=== PATIENT | female | born 1980 | race Caucasian/White ===

== ENCOUNTER 2016-10-10 03:09 | Emergency (ER) | payer MEDICAID ==
[~2016-10-10] VITALS: Ht 154.9 cm; Wt 77.1 kg
[~2016-10-10 03:09] MED LIST: PRENATAL1 TA4
[2016-10-10 03:50] VITALS: BP 135/92
--- NOTE | 2016-10-10 04:23 | NUR ---
PT TAKEN TO BED 1
--- NOTE | 2016-10-10 04:32 | NUR ---
Dr. Kelly evaluating patient at bedside.
--- NOTE | 2016-10-10 04:40 | NUR ---
35Y/F PATIENT PRESENTS TO ED WITH C/O OF VAGINAL BLEEDING STARTED 2330. DENIES ANY PAIN, N/V/D. PATIENT IS NO PAST MED HX.; SKIN IS PINK/WARM/DRY; AAOX4 WITH EVEN AND STEADY GAIT; LUNGS CLEAR BL; HR EVEN AND REGULAR; PT DENIES ANY FEVER, CP, SOB, OR COUGH AT THIS TIME; PATIENT STATES PAIN OF 0/10 AT THIS TIME; VSS; PATIENT POSITIONED FOR COMFORT; HOB ELEVATED; BEDRAILS UP X2; BED DOWN. ER MD MADE AWARE OF PT STATUS.
--- NOTE | 2016-10-10 06:19 | NUR ---
Female Instructor [employer] Marva Russell (EMT) accompanied ER MD for FEMALE PATIENT Pelvic Exam.
--- NOTE | 2016-10-10 07:05 | NUR ---
Patient discharged with v/s stable. Written and verbal after care instructions given and explained. Patient verbalized understanding. Ambulatory with steady gait. All questions addressed prior to discharge. Advised to follow up with PMD.
[2016-10-10 07:07] VITALS: BP 125/85
[2016-12-25] MEDS ORDERED: PRENATAL LOW IR1 TA1 PO (22:30)
== END 2016-10-10 07:05 | disposition home or self-care (01) ==
LOC: MED 03:09
DX: O20.0 Threatened abortion (principal); Z3A.12 12 weeks gestation of pregnancy

== ENCOUNTER 2016-12-25 20:12 | Observation (INO) | payer MEDICAID ==
[~2016-12-25] VITALS: Ht 160 cm; Wt 78.5 kg
[2016-12-25 21:18] VITALS: BP 123/78
[2016-12-25] MEDS ORDERED: PREN-380 PO (22:30)
== END 2016-12-25 23:58 | disposition home or self-care (01) ==
LOC: MLD 20:12
PROVIDERS: ADMIT Obstetrics & Gynecology; ATTEND Obstetrics & Gynecology
DX: O26.892 Other specified pregnancy related conditions, second trimester (principal); R10.9 Unspecified abdominal pain; Z3A.23 23 weeks gestation of pregnancy
CPT/HCPCS: 76805; G0378; Q0092

== ENCOUNTER 2018-06-18 00:09 | Emergency (ER) | payer MEDICAID ==
[~2018-06-18] VITALS: Ht 160 cm; Wt 68.0 kg
[~2018-06-18 00:09] MED LIST changes: +PREN-380 PO; -PRENATAL1 TA4
[2018-06-18 00:14] VITALS: BP 130/98
[2018-06-18] MEDS ORDERED: MORPHINE SULFATE 4 MG/ML SYR IVP ONE (00:30)
[2018-06-18] MEDS ORDERED: NACL 0.9% 1,000 ML IV ONE (00:30)
[2018-06-18] MEDS ORDERED: PROCHLORPERAZINE 10 MG/2 ML VIAL IVP ONE (00:35)
[2018-06-18 00:45] LABS: BASOPHILS # (AUTO) 0.1 K/uL (0.00-0.22); BASOPHILS % (AUTO) 0.8 % (0.0-2.0); EOSINOPHILS # (AUTO) 0.1 K/uL (0-0.4); EOSINOPHILS % (AUTO) 1.3 % (0.0-4.0); HEMATOCRIT 42.6 % (36-48); HEMOGLOBIN 14.3 g/dL (12.0-16.0); LYMPHOCYTES # (AUTO) 3.7 K/uL (2.5-16.5); LYMPHOCYTES % (AUTO) 37.5 % (20.5-51.1); MEAN CORPUSCULAR HEMOGLOBIN 29 pg (27-31); MEAN CORPUSCULAR HGB CONC 34 g/dL (33-37); MONOCYTES # (AUTO) 0.7 K/uL (0.8-1.0); MONOCYTES % (AUTO) 6.9 % (1.7-9.3); NEUTROPHILS # (AUTO) 5.2 K/uL (1.8-7.7); NEUTROPHILS % (AUTO) 53.5 % (42.2-75.2); PLATELET COUNT (AUTO) 256 K/uL (140-450); RED BLOOD CELL COUNT(AUTO) 5.01 MIL/uL (4.20-5.40); RED CELL DISTRIBUTION WIDTH 14.1 % (11.6-13.7); WHITE BLOOD COUNT (AUTO) 9.8 K/uL (4.8-10.8)
[2018-06-18 01:06] LABS: ALBUMIN 3.9 g/dL (3.4-5.0); ANION GAP 12.8 (8-16); CREATININE 1.1 mg/dL (0.6-1.3); POTASSIUM 3.8 mmol/L (3.5-5.1); TOTAL BILIRUBIN 0.3 mg/dL (0.0-1.0)
[2018-06-18 01:08] LABS: PROTHROMBIN TIME 10.3 secs (10.8-13.4)
[2018-06-18] MEDS ORDERED: MORPHINE SULFATE 2 MG/ML SYR IVP ONE (01:25)
[2018-06-18 02:10] VITALS: BP 96/57
== END 2018-06-18 01:58 | disposition home or self-care (01) ==
LOC: MED 00:09
DX: G43.909 Migraine, unspecified, not intractable, without status migrainosus (principal); R79.1 Abnormal coagulation profile
CPT/HCPCS: 36415; 70450; 80053; 81002; 81025; 85025; 85610; 85730; 96374; 96375; 96376; 99285; J0780; J2270

== ENCOUNTER 2018-10-26 20:03 | Emergency (ER) | payer MEDICAID ==
[~2018-10-26] VITALS: Ht 134.6 cm; Wt 83.0 kg
[2018-10-26 20:26] VITALS: BP 133/93
--- NOTE | 2018-10-26 21:11 | NUR ---
PT AMBULATED TO BED #7, GAVE REPORT TO RN
--- NOTE | 2018-10-26 21:42 | NUR ---
PT TO ED WITH C/O RT SIDED MOUTH PAIN AND SWELLING. PT DENIES DIFFICULTY SWALLOWING OR BREATHING. PT ABLE TO OPEN MOUTH WITH NO DIFFICULTY. PT DENIES INJURY OR TRAUMA. PT PLACED INTO BED, PENDING MD REY.
[2018-10-26 22:00] VITALS: BP 133/93
[2018-10-26] MEDS ORDERED: KETOROLAC 60 MG/2 ML VIAL IM ONE (22:00)
[2018-10-26] MEDS ORDERED: CLINDAMYCIN 600 MG/4 ML VIAL IM ONE (22:00)
--- NOTE | 2018-10-26 22:00 | NUR ---
Patient discharged with v/s stable. Written and verbal after care instructions given and explained. Patient alert, oriented and verbalized understanding of instructions. Ambulatory WITH WALKER. All questions addressed prior to discharge. ID band removed. Patient advised to follow up with PMD. Rx of DOXYCYCLINE, TRAMADOL WAS given. Patient educated on indication of medication including possible reaction and side effects. Opportunity to ask questions provided and answered. Addendum: 10/26/18 at 2317 by [facility] Patient discharged with v/s stable. Written and verbal after care instructions given and explained. Patient alert, oriented and verbalized understanding of instructions. Ambulatory AND STEADY GAIT. All questions addressed prior to discharge. ID band removed. Patient advised to follow up with PMD. Rx of DOXYCYCLINE, TRAMADOL WAS given. Patient educated on indication of medication including possible reaction and side effects. Opportunity to ask questions provided and answered
== END 2018-10-26 22:00 | disposition home or self-care (01) ==
LOC: MED 20:03
DX: K04.7 Periapical abscess without sinus (principal); L03.211 Cellulitis of face; Z79.899 Other long term (current) drug therapy
CPT/HCPCS: 81002; 81025; 96372; 99283; J1885; J3490

== ENCOUNTER 2019-01-15 14:18 | Emergency (ER) | payer MEDICAID ==
[~2019-01-15] VITALS: Ht 152.4 cm; Wt 83.9 kg
[2019-01-15 14:27] VITALS: BP 122/75
--- NOTE | 2019-01-15 14:35 | NUR ---
PATIENT AMBULATED TO ER BED 12. RN EVALUATING AT BEDSIDE.
[2019-01-15] MEDS ORDERED: DEXAMETHASONE 10 MG/ML VIAL IM ONE (15:10)
[2019-01-15] MEDS ORDERED: cefTRIAXone 1,000 MG in LIDOCAINE 1% ***ER ONLY *** 2.1 ML IM ONE (15:10)
[2019-01-15] MEDS ORDERED: hydrOXYzine HCL 25 MG TAB PO ONE (15:10)
[2019-01-15] MEDS ORDERED: cefTRIAXone 1,000 MG VIAL ONE (15:25)
[2019-01-15] MEDS ORDERED: LIDOCAINE MPF 1% - 5 mL VIAL 5 ML ONE (15:26)
[2019-01-15 15:57] VITALS: BP 116/74
--- NOTE | 2019-01-15 15:58 | NUR ---
Patient discharged with v/s stable. Written and verbal after care instructions given and explained. Patient alert, oriented and verbalized understanding of instructions. Ambulatory with steady gait. All questions addressed prior to discharge. ID band removed. Patient advised to follow up with PMD. Rx of PREDNISONE, FIORICET, LEVAQUIN given. Patient educated on indication of medication including possible reaction and side effects. Opportunity to ask questions provided and answered.
== END 2019-01-15 15:58 | disposition home or self-care (01) ==
LOC: MED 14:18
DX: J32.1 Chronic frontal sinusitis (principal); J32.0 Chronic maxillary sinusitis; Z79.899 Other long term (current) drug therapy
CPT/HCPCS: 96372; 99283; J0696; J1100; J2001

== ENCOUNTER 2019-02-14 10:26 | Emergency (ER) | payer MEDICAID ==
[~2019-02-14] VITALS: Ht 152.4 cm; Wt 83.1 kg
[2019-02-14 10:30] VITALS: BP 129/84
[2019-02-14] MEDS ORDERED: cefTRIAXone 1,000 MG in LIDOCAINE 1% ***ER ONLY *** 2.1 ML IM ONE (10:55)
[2019-02-14] MEDS ORDERED: KETOROLAC 60 MG/2 ML VIAL IM ONE (10:55)
[2019-02-14] MEDS ORDERED: cefTRIAXone 1,000 MG VIAL ONE (11:06)
[2019-02-14] MEDS ORDERED: LIDOCAINE MPF 1% - 5 mL VIAL 5 ML ONE (11:08)
--- NOTE | 2019-02-14 11:09 | NUR ---
pt presents to ED with c/o bilateral earache x 5 days and productive cough x 2 days. +fevers; afebrile a this time. denies N/V/D.
[2019-02-14 11:30] VITALS: BP 129/84
--- NOTE | 2019-02-14 11:30 | NUR ---
Patient discharged with v/s stable. Written and verbal after care instructions given and explained. Patient alert, oriented and verbalized understanding of instructions. Ambulatory with steady gait. All questions addressed prior to discharge. ID band removed. Patient advised to follow up with PMD. Rx of Motrin, cipro and Cortisporin otic jesús given. Patient educated on indication of medication including possible reaction and side effects. Opportunity to ask questions provided and answered.
== END 2019-02-14 11:30 | disposition home or self-care (01) ==
LOC: MED 10:26
DX: H66.93 Otitis media, unspecified, bilateral (principal); H60.93 Unspecified otitis externa, bilateral; Z79.899 Other long term (current) drug therapy
CPT/HCPCS: 96372; 99283; J0696; J1885; J2001

== ENCOUNTER 2019-09-21 10:20 | Emergency (ER) | payer MEDICAID ==
[~2019-09-21] VITALS: Ht 149.9 cm; Wt 68.0 kg
[2019-09-21 10:33] VITALS: BP 153/93
--- NOTE | 2019-09-21 11:25 | NUR ---
PT AMB TO BED 8
--- NOTE | 2019-09-21 11:26 | NUR ---
C/O BURNING PAIN UPON VOIDING X 3 DAYS AND NOW WITH HEMATURIA PATIENT STATES PAIN OF 9/10 AT THIS TIME. PATIENT POSITIONED FOR COMFORT; HOB ELEVATED; BEDRAILS UP X1; BED DOWN. ER MD MADE AWARE OF PT STATUS.
[2019-09-21 11:29] LABS: APPEARANCE,URINE CLEAR (CLEAR); BILIRUBIN,URINE NEGATIVE (NEGATIVE); BLOOD, URINE 3+ (NEGATIVE); COLOR,URINE RED (YELLOW); LEUKOCYTE ESTERASE ,URINE 2+ (NEGATIVE); NITRITE, URINE NEGATIVE (NEGATIVE); UGLUCOSE NEGATIVE (NEGATIVE)
[2019-09-21 11:59] LABS: RBC,URINE 0-5 /HPF (0-5); WBC,URINE TOO MANY TO COUNT /HPF (0-5)
[2019-09-21 12:43] VITALS: BP 132/78
--- NOTE | 2019-09-21 12:43 | NUR ---
Patient discharged with v/s stable. Written and verbal after care instructions given and explained. Patient alert, oriented and verbalized understanding of instructions. Ambulatory with steady gait. All questions addressed prior to discharge. ID band removed. Patient advised to follow up with PMD. Rx of PYRIDIUM & BACTRIM given. Patient educated on indication of medication including possible reaction and side effects. Opportunity to ask questions provided and answered.
== END 2019-09-21 12:43 | disposition home or self-care (01) ==
LOC: MED 10:20
DX: N39.0 Urinary tract infection, site not specified (principal); Z79.899 Other long term (current) drug therapy
CPT/HCPCS: 81001; 81002; 81025; 87086; 99283

== ENCOUNTER 2022-07-31 08:55 | Emergency (ER) | payer MEDICAID ==
[~2022-07-31] VITALS: Ht 149.9 cm; Wt 72.6 kg
[2022-07-31 09:08] VITALS: BP 110/77
[2022-07-31] MEDS ORDERED: NAPR-54 PO (11:06)
[2022-07-31] MEDS ORDERED: ALBU0.0912 INH (11:06)
[2022-07-31] MEDS ORDERED: ROB PO (11:06)
[2022-07-31 11:47] VITALS: BP 120/68
== END 2022-07-31 11:47 | disposition home or self-care (01) ==
LOC: MED 08:55
DX: B34.9 Viral infection, unspecified (principal); Z20.822 Contact with and (suspected) exposure to COVID-19; R05.9 Cough, unspecified; R07.9 Chest pain, unspecified
CPT/HCPCS: 71045; 99284

== ENCOUNTER 2024-02-24 22:28 | Emergency (ER) | payer MEDICAID ==
[~2024-02-24] VITALS: Ht 148.6 cm; Wt 84.4 kg
[~2024-02-24 22:28] MED LIST changes: +ALBU0.0912 INH; +NAPR-337 PO; +ROB PO
[2024-02-24 23:03] VITALS: BP 142/87; PULSE 84; RESP 18; TEMP 98.5; O2SAT 100
[2024-02-25] MEDS: KETOROLAC 60 MG/2 ML VIAL IM ONE (00:24)
[2024-02-25] MEDS ORDERED: ACET-8905 PO (00:27)
[2024-02-25] MEDS ORDERED: IBUP-2213 PO (00:27)
[2024-02-25 00:55] VITALS: BP 142/87; PULSE 84; RESP 18; TEMP 98.5
[2024-02-25 01:00] VITALS: O2SAT 100
== END 2024-02-25 00:55 | disposition home or self-care (01) ==
LOC: MED 22:28
DX: R51.9 Headache, unspecified (principal); R20.2 Paresthesia of skin; R03.0 Elevated blood-pressure reading, without diagnosis of hypertension; Z98.890 Other specified postprocedural states; Z79.1 Long term (current) use of non-steroidal anti-inflammatories (NSAID); Z79.899 Other long term (current) drug therapy
CPT/HCPCS: 81025; 96372; 99283; J1885

== ENCOUNTER 2024-06-01 02:15 | Emergency (ER) | payer MEDICAID ==
[~2024-06-01] VITALS: Ht 147.3 cm; Wt 81.6 kg
[~2024-06-01 02:15] MED LIST changes: +ACET-8905 PO; +IBUP-2213 PO
[2024-06-01 02:16] VITALS: BP 151/87; PULSE 79; RESP 18; TEMP 97.3; O2SAT 98
[2024-06-01 02:53] VITALS: TEMP 97.3
[2024-06-01] MEDS: NACL 0.9% 1,000 ML IV ONE (03:05)
[2024-06-01] MEDS: KETOROLAC 30 MG/ML VIAL IVP ONE (03:08)
[2024-06-01 03:12] LABS: BASOPHILS # (AUTO) 0.1 K/uL (0.00-0.22); BASOPHILS % (AUTO) 1.4 % (0.0-2.0); EOSINOPHILS # (AUTO) 0.5 K/uL (0-0.4); EOSINOPHILS % (AUTO) 6.1 % (0.0-4.0); HEMATOCRIT 41.4 % (36-48); LYMPHOCYTES # (AUTO) 3.7 K/uL (2.5-16.5); LYMPHOCYTES % (AUTO) 44.3 % (20.5-51.1); MEAN CORPUSCULAR HEMOGLOBIN 29 pg (27-31); MEAN CORPUSCULAR HGB CONC 34 g/dL (33-37); MEAN CORPUSCULAR VOLUME 85.5 fL (80-94); MONOCYTES # (AUTO) 0.6 K/uL (0.8-1.0); MONOCYTES % (AUTO) 6.7 % (1.7-9.3); NEUTROPHILS # (AUTO) 3.4 K/uL (1.8-7.7); NEUTROPHILS % (AUTO) 41.5 % (42.2-75.2); PLATELET COUNT (AUTO) 273 K/uL (140-450); RED BLOOD CELL COUNT(AUTO) 4.84 MIL/uL (4.20-5.40); RED CELL DISTRIBUTION WIDTH 13.8 % (11.6-13.7); WHITE BLOOD COUNT (AUTO) 8.3 K/uL (4.8-10.8)
[2024-06-01 03:16] LABS: APPEARANCE,URINE CLEAR (CLEAR); BILIRUBIN,URINE NEGATIVE (NEGATIVE); BLOOD, URINE TRACE-L (NEGATIVE); COLOR,URINE YELLOW (YELLOW); LEUKOCYTE ESTERASE ,URINE NEGATIVE (NEGATIVE); NITRITE, URINE NEGATIVE (NEGATIVE); PROTEIN,URINE NEGATIVE (NEGATIVE); UGLUCOSE NEGATIVE (NEGATIVE); UROBILINOGEN,URINE 0.2 EU/dL (0.2 - 1)
[2024-06-01 03:23] LABS: ANION GAP 13.4 (8-16); CALCIUM 9.7 mg/dL (8.5-10.1); CARBON DIOXIDE 28.6 mmol/L (21-32); CREATININE 0.7 mg/dL (0.6-1.3)
[2024-06-01 03:25] LABS: BACTERIA,URINE FEW /HPF (None Seen); MUCUS,URINE None Seen /LPF (None Seen); RBC,URINE 0-5 /HPF (0-5); SQUAMOUS EPITHELIAL CELL,UR 0-3 (FEW) /LPF (0-3 (FEW)); WBC,URINE 0-5 /HPF (0-5)
[2024-06-01 03:39] LABS: ALBUMIN 3.9 g/dL (3.4-5.0); BILIRUBIN,DIRECT 0.1 mg/dL (0.0-0.3); TOTAL BILIRUBIN 0.3 mg/dL (0.0-1.0); TOTAL PROTEIN, SERUM 8.6 g/dL (6.4-8.2)
[2024-06-01 04:57] VITALS: BP 126/65; PULSE 74; RESP 16; O2SAT 99
[2024-06-01] MEDS ORDERED: NAPR-337 PO (05:26)
== END 2024-06-01 05:37 | disposition home or self-care (01) ==
LOC: MED 02:15
DX: R10.32 Left lower quadrant pain (principal); E78.5 Hyperlipidemia, unspecified; Z98.51 Tubal ligation status; Z98.890 Other specified postprocedural states; Z79.899 Other long term (current) drug therapy
CPT/HCPCS: 36415; 74176; 80048; 80076; 81001; 81025; 85025; 87040; 96374; 99285; J1885; J7030